=== PATIENT | male | born 1990 | race African-American/Black ===

== ENCOUNTER 2017-06-20 19:21 | Emergency (ER) | payer MEDICAID ==
[~2017-06-20] VITALS: Ht 185.4 cm; Wt 74.8 kg
[2017-06-20 19:27] VITALS: BP_SYST 126
--- NOTE | 2017-06-20 19:27 | NUR ---
Placed in room 07. Placed on machine adjuster, blood pressure machine and pulse oximeter. To gown for exam. Side rails up. Report given to JOSE Hardy.
--- NOTE | 2017-06-20 19:28 | NUR ---
PT PRESENTS TO ER BED 4 COMPLAINING OF SINUS PROBLEM X1 MONTH THAT HAS BEEN INCREASINGLY BOTHERSOME. PT CLAIMS THAT THIS PROBLEM CAUSES HIM ANGER WHICH IN TURN CAUSES HIM TO CRY. PT CLAIMS TO TAKE DEPAKOTE AT HOME BUT HAS NOT TAKEN IN OVER 1 MONTH DUE TO UNFILLED PRESCRIPTION. PT ALSO COMPLAINS OF FOOT INFECTION THAT HAS BEEN PRESENT FOR 2.5 WEEKS TO WHICH HE ALSO HAD A FUNGAL CREAM THAT HAS BEEN OUT FOR 1 WEEK.
--- NOTE | 2017-06-20 20:05 | NUR ---
ER Dr. Weldon at bedside examining patient.
--- NOTE | 2017-06-20 20:22 | NUR ---
PT NOW CLAIMING SUICIDAL IDEATION. PT HAS A PLAN, CLAIMS "I WILL CUT MYSELF WITH MY KNIFE"SECURITY NOTIFIED, BELONGINGS CONFISCATED AND PATIENT IS MOVED TO ROOM 5.
--- NOTE | 2017-06-20 20:25 | NUR ---
Patient moved to bed 05, all articles of clothing and personal items removed from room. Security called for metal detection wand, at this time. Patient calm and cooperative at this time. Will continue to monitor closely.
--- NOTE | 2017-06-20 20:30 | NUR ---
Suicide Risk and Lethality Assessment complete and placed in patient chart. Patient meets criteria for 1:3 observation. Will remain under close observation at this time.
[2017-06-20 20:34] LABS: BASOPHILS % (AUTO) 0.7 % (0.0-2.0); EOSINOPHILS # (AUTO) 0.2 K/uL (0.0-0.4); EOSINOPHILS % (AUTO) 3.7 % (0.0-4.0); HEMATOCRIT 41.2 % (36-54); LYMPHOCYTES # (AUTO) 1.4 K/uL (1.0-5.5); LYMPHOCYTES % (AUTO) 22.4 % (20.5-51.5); MEAN CORPUSCULAR HEMOGLOBIN 30 pg (27-31); MEAN CORPUSCULAR HGB CONC 34 % (32-36); MEAN CORPUSCULAR VOLUME 88 fL (79.0-98.0); MONOCYTES # (AUTO) 0.4 K/uL (0.0-1.0); MONOCYTES % (AUTO) 5.6 % (1.7-9.3); NEUTROPHILS # (AUTO) 4.3 K/uL (1.8-7.7); NEUTROPHILS % (AUTO) 67.6 % (40.0-70.0); PLATELET COUNT (AUTO) 255 K/uL (130-430); RED BLOOD CELL COUNT(AUTO) 4.66 MIL/uL (4.2-6.2); RED CELL DISTRIBUTION WIDTH 12.9 % (9.0-15.0); WHITE BLOOD COUNT (AUTO) 6.3 K/uL (4.8-10.8)
[2017-06-20 20:53] LABS: ANION GAP 8 (5-15); CALCIUM 8.7 mg/dL (8.4-11.0); CHLORIDE 106 mmol/L (98-107); CREATININE 0.84 mg/dL (0.55-1.30); GLUCOSE 87 mg/dL (70-99); POTASSIUM 3.5 mmol/L (3.5-5.1); SODIUM SERUM 143 mmol/L (136-145); UREA NITROGEN, BLOOD 11 mg/dL (8-21)
[2017-06-20 20:55] LABS: GFR AFRICAN AMERICAN 144 mL/min (>90)
[2017-06-20 21:02] LABS: ACETAMINOPHEN < 1 ug/mL (1-30); ALANINE AMINOTRANSFERASE 26 U/L (12-78); ALBUMIN 3.2 g/dL (3.4-4.8); ASPARTATE AMINOTRANSFERASE 21 U/L (10-37); LIPASE 116 U/L (73-393); TOTAL BILIRUBIN 0.3 mg/dL (0.0-1.0)
--- NOTE | 2017-06-20 21:53 | NUR ---
PT IS RESTING COMFORTABLY IN BED. NO NOTABLE ACTIVITY OR VERBALIZED PROBLEMS
--- NOTE | 2017-06-20 22:30 | NUR ---
Patient resting quietly. No acute distress noted. Will continue to monitor closely.
--- NOTE | 2017-06-20 23:00 | NUR ---
PT IS SLEEPING. NO DISTRESS, NO APPARENT PAIN OR DISCOMFORT. NO UNUSUAL ACTIVITIES. WILL CONTINUE TO OBSERVE
--- NOTE | 2017-06-21 00:10 | NUR ---
PT IS IN BED RESTING. NO SIGNS OF DISTRESS, NO APPARENT PAIN OR DISCOMFORT. NO UNUSUAL ACTIVITY OBSERVED. WILL CONTINUE TO OBSERVE.
--- NOTE | 2017-06-21 02:12 | NUR ---
Pt in bed, sleeping. no distress, no identified pain or discomfort. No unusal activity noted. will continue to observe
--- NOTE | 2017-06-21 02:54 | NUR ---
Pt in bed sleeping. no distress, no identified pain. No unusual activity. will continue to observe
--- NOTE | 2017-06-21 04:00 | NUR ---
PT SLEEPING. NO DISTRESS, NO PAIN OR DISCOMFORT. NO UNUSUAL ACTIVITY. WILL CONTINUE TO OBSERVE.
--- NOTE | 2017-06-21 05:00 | NUR ---
PT SLEEPING. NO DISTRESS, NO PAIN OR DISCOMFORT. NO UNUSUAL ACTIVITY. WILL CONTINUE TO OBSERVE.
--- NOTE | 2017-06-21 06:09 | NUR ---
PT SLEEPING, AWOKEN WHEN ASSESSED. PT IS ALERT, NO SIGNS OF DISTRESS, NO COMPLAINT OF PAIN OR DISCOMFORT. NO UNUSUAL ACTIVITES. PT IS REQUESTING ORANGE JUICE AND CRACKERTS. WILL CONTINUE TO OBSERVE
--- NOTE | 2017-06-21 06:57 | NUR ---
PT SLEEPING. NO DISTRESS, NO APPARENT PAIN OR DISCOMFORT. NO UNUSUAL ACTIVITY DETECTED. WILL CONTINUE TO OBSERVE
--- NOTE | 2017-06-21 07:05 | NUR ---
Receveid report from JOSE Hardy. All care endorsed.
--- NOTE | 2017-06-21 07:18 | NUR ---
Security at patient bedside to wand patient. Pt tolerated well.
--- NOTE | 2017-06-21 07:24 | NUR ---
Suicide Risk and Lethality Assessment complete and placed in patient chart. Pt sleeping in hospital bed comfortably. Dietary was called for breakfast tray. Sitter at bedside. No acute distress, will continue to monitor closely.
--- NOTE | 2017-06-21 08:15 | NUR ---
Pt sleeping in hospital bed. No acute distress. Rise and fall of chest is symmetrical. Will continue to monitor closely. Sitter at bedside.
--- NOTE | 2017-06-21 09:07 | NUR ---
Pt sleeping in hospital bed. No acute distress. Will continue to monitor. Sitter at bedside.
--- NOTE | 2017-06-21 09:41 | NUR ---
Pt eating breakfast at bedside. No acute distress. Will continue to monitor. Sitter at bedside.
--- NOTE | 2017-06-21 10:00 | NUR ---
Pt requested for another blanket. Pt is resting comfortably in hospital bed. No acute distress. Will continue to monitor.
--- NOTE | 2017-06-21 10:40 | NUR ---
Dr Abel at bedside examining pt
--- NOTE | 2017-06-21 10:48 | NUR ---
Dr. Abel placed patient under [id number].
--- NOTE | 2017-06-21 11:22 | NUR ---
Pt sleeping in hospital bed. Even rise and fall of chest. No acute distress. Will continue to monitor. Sitter at bedside.
--- NOTE | 2017-06-21 12:35 | NUR ---
Pt is sleeping with no noted distress or discomfort.
--- NOTE | 2017-06-21 13:24 | NUR ---
Pt is resting comfortably after eating lunch. No acute distress. Will continue to monitor.
[2017-06-21 13:27] LABS: BARBITURATE, URINE NEGATIVE (NEG <=200); BENZODIAZEPINE, URINE NEGATIVE (NEG <=150); CANNABINOID, URINE POSITIVE (NEG <=50); COCAINE, URINE NEGATIVE (NEG <=150); METHAMPHETAMINES SCREEN,URINE NEGATIVE (NEG <=500); OPIATE, URINE NEGATIVE (NEG <=100); PHENCYCLIDINE SCREEN,URINE NEGATIVE (NEG <=25); UR TRICYCLIC ANTIDEPRESSANTS NEGATIVE (NEG <=300); URINE AMPHETAMINE POSITIVE (NEG <=500); URINE METHADONE NEGATIVE (NEG <=200); URINE OXYCODONE SCREEN NEGATIVE (NEG <=100); URINE PROPOXYPHENE SCREEN NEGATIVE (NEG <=300)
[2017-06-21] MEDS ORDERED: DIPHENHYDRAMINE INJ 50 MG/ML VIAL ONE (13:59)
[2017-06-21] MEDS ORDERED: HALOPERIDOL LACTATE 5 MG/ML VIAL ONE (14:00)
[2017-06-21] MEDS ORDERED: LORazepam 2 MG/ML VIAL (FOR ER USE) ONE (14:01)
[2017-06-21] MEDS ORDERED: DIPHENHYDRAMINE INJ 50 MG/ML VIAL IVP ONE (14:15)
[2017-06-21] MEDS ORDERED: HALOPERIDOL LACTATE 5 MG/ML VIAL IVP ONE (14:15)
[2017-06-21] MEDS ORDERED: LORazepam 2 MG/ML VIAL (FOR ER USE) IVP ONE (14:15)
--- NOTE | 2017-06-21 14:17 | NUR ---
RECIEVED REPORT FROM NURSE. PT IS AGRAVATED AND ARGUING WITH NURSE AND DOCTOR. WILL CONTINUE TO MONITOR.
--- NOTE | 2017-06-21 14:26 | NUR ---
# 18 gauge angiocath placed to RAC. Use of asceptic technique. Opsite placed over site. Blood return noted. Blood for lab drawn from site. Flushed with 10 cc of normal saline. No evidence of infiltration noted. Patient tolerated well.
--- NOTE | 2017-06-21 14:30 | NUR ---
Medication was given, pt tolerated well. No adverse reaction, will continue to monitor.
--- NOTE | 2017-06-21 15:19 | NUR ---
PT RESTING COMFORTABLY IN BED. WILL CONTINUE TO MONITOR.
--- NOTE | 2017-06-21 16:26 | NUR ---
Pt is sleeping comfortably. No acute distress. Will continue to monitor.
--- NOTE | 2017-06-21 17:24 | NUR ---
pt sleeping comfortably. no acute distress. will continue to monitor.
--- NOTE | 2017-06-21 18:36 | NUR ---
Pt resting comfortably in hospital bed. No acute distress. Will continue to monitor.
--- NOTE | 2017-06-21 19:11 | NUR ---
Report given to JOSE Nieto. All care endorsed.
--- NOTE | 2017-06-21 19:15 | NUR ---
Patient sleeping comfortably. No acute distress noted. Will continue to monitor.
--- NOTE | 2017-06-21 19:36 | NUR ---
Pt is resting comfortably in hospital bed. No acute distress. Will continue to monitor.
--- NOTE | 2017-06-21 19:45 | NUR ---
Patient sleeping comfortably. No acute distress noted. Will continue to monitor.
--- NOTE | 2017-06-21 20:00 | NUR ---
Patient sleeping comfortably. No acute distress noted. Will continue to monitor.
--- NOTE | 2017-06-21 20:15 | NUR ---
Patient sleeping comfortably. No acute distress noted. Will continue to monitor.
--- NOTE | 2017-06-21 20:37 | NUR ---
Pt is resting comfortably in hospital bed. No acute distress. Will continue to monitor.
--- NOTE | 2017-06-21 20:45 | NUR ---
Patient sleeping comfortably. No acute distress noted. Will continue to monitor.
--- NOTE | 2017-06-21 21:14 | NUR ---
Pt requested some snacks. sandwich, crackers, and orange juice given. no acute distress. will continue to monitor.
--- NOTE | 2017-06-21 21:20 | NUR ---
Patient resting, given sandwhiches, patient has finished 1 sandwhich and 2 juices. Will continue to monitor.
--- NOTE | 2017-06-21 21:35 | NUR ---
Patient resting quietly. No acute distress noted. Vital signs within normal range.
--- NOTE | 2017-06-21 21:50 | NUR ---
Patient sleeping comfortably. No acute distress noted. Will continue to monitor.
--- NOTE | 2017-06-21 22:00 | NUR ---
Patient sleeping. No acute distress noted. Will continue to monitor.
--- NOTE | 2017-06-21 22:15 | NUR ---
Patient resting quietly. No acute distress noted.
--- NOTE | 2017-06-21 22:30 | NUR ---
Patient resting quietly. No acute distress noted.
--- NOTE | 2017-06-21 22:40 | NUR ---
pt is resting comfortably in hospital bed. no acute distress. will continue to monitor.
--- NOTE | 2017-06-21 23:00 | NUR ---
Patient sleeping comfortably. No acute distress noted. Will continue to monitor.
--- NOTE | 2017-06-21 23:15 | NUR ---
Patient sleeping comfortably. No acute distress noted. Will continue to monitor.
--- NOTE | 2017-06-21 23:30 | NUR ---
Patient sleeping comfortably. No acute distress noted. Will continue to monitor.
--- NOTE | 2017-06-21 23:45 | NUR ---
Patient sleeping comfortably. No acute distress noted. Will continue to monitor.
--- NOTE | 2017-06-22 | NUR ---
Patient sleeping comfortably. No acute distress noted. Will continue to monitor.
--- NOTE | 2017-06-22 00:16 | NUR ---
Pt has asked for some orange juice. Bryan juice was given. No acute distress. Will continue to monitor.
--- NOTE | 2017-06-22 00:30 | NUR ---
Patient sleeping comfortably. No acute distress noted. Will continue to monitor.
--- NOTE | 2017-06-22 00:45 | NUR ---
Patient sleeping comfortably. No acute distress noted. Will continue to monitor.
--- NOTE | 2017-06-22 01:08 | NUR ---
Pt resting comfortably, no apparent distress. will continue to monitor.
--- NOTE | 2017-06-22 01:30 | NUR ---
IV catheter dislodged. Catheter DC, pressure applied to site. MD Weldon made aware.
--- NOTE | 2017-06-22 01:45 | NUR ---
Patient sleeping comfortably. No acute distress noted. Will continue to monitor.
--- NOTE | 2017-06-22 02:01 | NUR ---
Patient resting quietly. No acute distress noted. Will continue to monitor.
--- NOTE | 2017-06-22 02:15 | NUR ---
Patient sleeping comfortably. No acute distress noted.
--- NOTE | 2017-06-22 02:30 | NUR ---
Patient resting quietly. No acute distress noted. Vital signs within normal range.
--- NOTE | 2017-06-22 02:45 | NUR ---
Patient resting quietly. No acute distress noted.
--- NOTE | 2017-06-22 03:00 | NUR ---
Patient resting quietly. No acute distress noted.
--- NOTE | 2017-06-22 03:15 | NUR ---
Patient resting quietly. No acute distress noted.
--- NOTE | 2017-06-22 03:30 | NUR ---
Patient resting quietly. No acute distress noted.
--- NOTE | 2017-06-22 03:30 | NUR ---
Note donte in [facility] - 06/22/17 at 0401 by [email or web address] Patient resting quietly. No acute distress noted.
--- NOTE | 2017-06-22 03:45 | NUR ---
Patient resting quietly. No acute distress noted.
--- NOTE | 2017-06-22 04:00 | NUR ---
Patient resting quietly. No acute distress noted.
--- NOTE | 2017-06-22 04:16 | NUR ---
Patient resting quietly. No acute distress noted
--- NOTE | 2017-06-22 04:31 | NUR ---
Patient resting quietly. No acute distress noted
--- NOTE | 2017-06-22 04:44 | NUR ---
Patient resting quietly. No acute distress noted
--- NOTE | 2017-06-22 05:00 | NUR ---
Patient resting quietly. No acute distress noted
--- NOTE | 2017-06-22 05:15 | NUR ---
Patient resting quietly. No acute distress noted
--- NOTE | 2017-06-22 05:30 | NUR ---
Patient resting quietly. No acute distress noted
--- NOTE | 2017-06-22 05:45 | NUR ---
Patient resting quietly. No acute distress noted
--- NOTE | 2017-06-22 05:58 | NUR ---
PATIENT UP USING THE RESTROOM
--- NOTE | 2017-06-22 06:00 | NUR ---
Patient screaming and yelling, threatening staff stating, "I'm going to fuck you all up. I need hospital socks!" Security called at this time. Patient advised to stop MD Dr. Shiraz richard aware of situation.
--- NOTE | 2017-06-22 06:02 | NUR ---
ER at bedside examining patient. Patient threatening MD at this time stating, "You better order me something for my sinus infection or else I'm going fucking, fuck you up." Security on way to ED at this time.
--- NOTE | 2017-06-22 06:05 | NUR ---
Security at bedside.
--- NOTE | 2017-06-22 06:20 | NUR ---
Security at bedside, patient calm and back in bed, no longer yelling. No acute distress. Will continue to monitor.
--- NOTE | 2017-06-22 06:35 | NUR ---
Patient resting no acute distress noted.
--- NOTE | 2017-06-22 06:55 | NUR ---
Shannan left ED at this time, patient stable, resting in bed. No acute distress noted. Will continue to monitor.
--- NOTE | 2017-06-22 07:15 | NUR ---
Report given to Adam GARCIA. All care endorsed.
--- NOTE | 2017-06-22 07:30 | NUR ---
ASSUMED CARE. PT GIVEN MORNING TRAY. PT TOLERATING WELL.
--- NOTE | 2017-06-22 07:45 | NUR ---
Pt medicated for c/o sinus irritation.Pt tolerated well.
[2017-06-22] MEDS: FLUTICASONE PROPIONATE 50 mCg/SPRAY 16 GM NS SCH ×2 (07:52→21:16)
--- NOTE | 2017-06-22 08:00 | NUR ---
Pt consumed 100% of breakfast tray. Pt tolerated well.
--- NOTE | 2017-06-22 08:15 | NUR ---
Pt sleeping easily arousable.
--- NOTE | 2017-06-22 08:45 | NUR ---
Pt resting, not engaging in conversation.Pt declines hydration or toileting at this time
--- NOTE | 2017-06-22 09:45 | NUR ---
Pt wanded by security. Pt retuned to sleep. Sitter at bedside. Gurney in lowest position, no acute distress noted.
--- NOTE | 2017-06-22 10:10 | NUR ---
SLEEPING QUIETLY, NO CHANGES
--- NOTE | 2017-06-22 11:00 | NUR ---
PT BECOME AGGRESSIVE AND HAVING TEMPER TANTRUM. PT REASSURED PREVIOUSLY REQUESTED MEDICATION IS COMING FROM PHARMACY,HOWEVER PT COOPERATIVE W/ PO ATIVAN.
[2017-06-22] MEDS ORDERED: CLOTRIMAZOLE/BETAMET DIPROP 15 GM TUBE TP SCH (11:15)
[2017-06-22] MEDS ORDERED: LORazepam 1 MG TABLET PO ONE (11:15)
[2017-06-22] MEDS: CLOTRIMAZOLE/BETAMET DIPROP 15 GM TUBE TP SCH ×2 (11:16→22:11)
[2017-06-22] MEDS ORDERED: PSEUDOEPHEDRINE HCL 30 MG TABLET PO ONE (11:30)
--- NOTE | 2017-06-22 11:30 | NUR ---
ANTIFUNGAL CREAM APPLIED TO TOENAILS, PT TOLERATED WELL. PT MADE AGREEMENT TO BE CALM. PT RETURNED TO RESTING STATED. CONTINUING TO MONITOR.
--- NOTE | 2017-06-22 12:40 | NUR ---
PT currently eating lunch. Saftey tray provided. PT calm at the momment. No signs of anytype of distress. Will remain monitoring PT
--- NOTE | 2017-06-22 13:30 | NUR ---
PT currently sleeping. PT not showing anykind of distress. Will continue to monitor
--- NOTE | 2017-06-22 14:20 | NUR ---
PT woke up to go to restroom. PT is back in bed sleeping. No signs of any distress at the time. Will continue to monitor
--- NOTE | 2017-06-22 15:18 | NUR ---
PT is resting in bed. No signs of any distress at the momment. Will Continue to Monitor
--- NOTE | 2017-06-22 16:12 | NUR ---
PT sleeping at the mommnent no signs of any type of distress will continue monitoring PT
--- NOTE | 2017-06-22 17:00 | NUR ---
PT laying in bed sleeping. No sings of any distress. Will continue to monitor PT for any changes.
--- NOTE | 2017-06-22 17:30 | NUR ---
PT asked for snacks. Crackers provided. PT back to sleep no signs of distress. Will continue to monitor
--- NOTE | 2017-06-22 18:00 | NUR ---
PT sleeping at time, no signs of distress. Will continue to monitor
--- NOTE | 2017-06-22 18:12 | NUR ---
PT sleeping, no signs of distress. Will continue to monitor
--- NOTE | 2017-06-22 19:00 | NUR ---
PT sleeping . No Changes. Will continue to monitor
--- NOTE | 2017-06-22 19:30 | NUR ---
Patient placed on suicide precautions. Patient placed in room within close proximity to nurses' station for closer observation and monitoring. All clothing removed, placed in hospital gown. Metal detector wand used to further screen patient of any potential hazardous belongings. All belongings inventoried, placed in bags and removed from room. Cabinets locked. BP and pulse oximeter cords, and telemetry monitor leads removed.
--- NOTE | 2017-06-22 19:46 | NUR ---
Pt resting at this time eyes closed, respirations even and unlabored.
--- NOTE | 2017-06-22 20:36 | NUR ---
Patient sleeping comfortably. No acute distress noted. Will continue to monitor.
--- NOTE | 2017-06-22 21:30 | NUR ---
Patient resting quietly. No acute distress noted
--- NOTE | 2017-06-22 22:30 | NUR ---
Pt is resting comfortably in hospital bed. No acute distress. Will continue to monitor.
--- NOTE | 2017-06-22 23:30 | NUR ---
Pt sleeping in hospital bed. No acute distress. Rise and fall of chest is symmetrical. Will continue to monitor closely.
--- NOTE | 2017-06-23 00:21 | NUR ---
Pt in bed, sleeping. no distress, no identified pain or discomfort. No unusal activity noted. Report given to RN
[2017-06-23 00:56] VITALS: BP_SYST 99
--- NOTE | 2017-06-23 00:56 | NUR ---
Patient to be transferred to [facility]. Pt is being transferred due to higher level of care. Receiving facility has accepting physician and available space. ER physician has signed transfer form. Patient or responsible republican has agreed to transfer and signed form. Patient belongings inventoried and will be sent with patient. Copy of nursing notes, lab reports, EKG, Physicians Orders and X-rays to be sent with patient. Report called to Andriy GARCIA at receiving facility. Receiving physician is Dr. Johns. [facility] on scene for transfer. ETA to [facility] is 45 min.
[2017-06-23] MEDS ORDERED: LORazepam 1 MG TABLET PO ONE (01:00)
== END 2017-06-23 00:56 ==
LOC: SED 19:21
DX: R45.851 Suicidal ideations (principal); F31.9 Bipolar disorder, unspecified
CPT/HCPCS: 36415; 80053; 80307; 83690; 83880; 84484; 85025; 93005; 96374; 96375; 99285; G0480; G0481; G0482; J1200; J2060; J1630

== ENCOUNTER 2018-02-16 13:23 | Emergency (ER) | payer MEDICAID ==
[~2018-02-16] VITALS: Ht 185.4 cm; Wt 74.8 kg
[2018-02-16 13:23] VITALS: BP_SYST 99
--- NOTE | 2018-02-16 13:23 | NUR ---
BROUGHT IN BY [facility], TRIAGED, REPORT GIVEN TO SARABJIT
--- NOTE | 2018-02-16 13:30 | NUR ---
Pt bib EMS c/o SI. Pt h/o Bipolar maniac depression and HTN. Pt calm and cooperative at this time. Pt changed to hospital gown, belongings bagged on labeled. Pt discharged from [facility] yesterday per report.Pt admits using mariuana yesterday. Verbal contract to made with pt for safety.Pt denies pain at this time.
--- NOTE | 2018-02-16 13:35 | NUR ---
ER at bedside examining patient.
--- NOTE | 2018-02-16 13:50 | NUR ---
Pt wanded by security.
--- NOTE | 2018-02-16 14:00 | NUR ---
Sitter at bedside.
--- NOTE | 2018-02-16 14:00 | NUR ---
pt calmly talking to JOSE mathews
[2018-02-16] MEDS ORDERED: risperiDONE 1 MG TABLET (RisperDAL) PO SCH (14:15)
[2018-02-16] MEDS ORDERED: DIVALPROEX SODIUM 250 MG TABLET(DEPAKOTE) PO ONE (14:15)
--- NOTE | 2018-02-16 14:15 | NUR ---
pt calm laying in bed eating food and drinking juice
--- NOTE | 2018-02-16 14:24 | NUR ---
1350 pt calm quite drinkiing juice Addendum: 02/16/18 at 1425 by Marielle Avendano MT/ time was at 1350
--- NOTE | 2018-02-16 14:30 | NUR ---
pt laying in bed on left side with eyes closed
--- NOTE | 2018-02-16 14:30 | NUR ---
Pt given safety tray.Pt tolerated well 100% consumed.
[2018-02-16 14:45] LABS: BARBITURATE, URINE NEGATIVE (NEG <=200); CANNABINOID, URINE POSITIVE (NEG <=50); METHAMPHETAMINES SCREEN,URINE POSITIVE (NEG <=500); URINE AMPHETAMINE POSITIVE (NEG <=500)
--- NOTE | 2018-02-16 14:45 | NUR ---
pt resting calmly resting with eyes closed room checked all items of harm have been cleared out of room
[2018-02-16 14:46] LABS: BENZODIAZEPINE, URINE NEGATIVE (NEG <=150); COCAINE, URINE NEGATIVE (NEG <=150); OPIATE, URINE NEGATIVE (NEG <=100); PHENCYCLIDINE SCREEN,URINE NEGATIVE (NEG <=25); UR TRICYCLIC ANTIDEPRESSANTS NEGATIVE (NEG <=300); URINE OXYCODONE SCREEN NEGATIVE (NEG <=100); URINE PROPOXYPHENE SCREEN NEGATIVE (NEG <=300)
[2018-02-16 14:46] LABS: BASOPHILS # (AUTO) 0.1 K/uL (0.0-0.2); BASOPHILS % (AUTO) 0.7 % (0.0-2.0); EOSINOPHILS % (AUTO) 0.6 % (0.0-4.0); HEMATOCRIT 44.5 % (36-54); HEMOGLOBIN 14.6 g/dL (14.0-18.0); LYMPHOCYTES % (AUTO) 12.5 % (20.5-51.5); MEAN CORPUSCULAR HEMOGLOBIN 30 pg (27-31); MEAN CORPUSCULAR HGB CONC 33 % (32-36); MEAN CORPUSCULAR VOLUME 92 fL (79.0-98.0); MONOCYTES # (AUTO) 0.2 K/uL (0.0-1.0); NEUTROPHILS # (AUTO) 6.5 K/uL (1.8-7.7); NEUTROPHILS % (AUTO) 83.2 % (40.0-70.0); PLATELET COUNT (AUTO) 255 K/uL (130-430); RED BLOOD CELL COUNT(AUTO) 4.86 MIL/uL (4.2-6.2); RED CELL DISTRIBUTION WIDTH 12.5 % (9.0-15.0); WHITE BLOOD COUNT (AUTO) 7.8 K/uL (4.8-10.8)
[2018-02-16 14:47] LABS: URINE METHADONE NEGATIVE (NEG <=200)
--- NOTE | 2018-02-16 15:00 | NUR ---
pt calmly laying in bed resting with eyes closed
[2018-02-16 15:02] LABS: ANION GAP 5 (5-15); CALCIUM 9.1 mg/dL (8.4-11.0); CHLORIDE 104 mmol/L (98-107); CREATININE 0.91 mg/dL (0.55-1.30); GLUCOSE 101 mg/dL (70-99); POTASSIUM 3.9 mmol/L (3.5-5.1); SODIUM SERUM 138 mmol/L (136-145); UREA NITROGEN, BLOOD 10 mg/dL (8-21)
[2018-02-16 15:06] LABS: GFR AFRICAN AMERICAN 131 mL/min (>90)
[2018-02-16 15:07] LABS: ALANINE AMINOTRANSFERASE 16 U/L (12-78); ALBUMIN 3.7 g/dL (3.4-4.8); ASPARTATE AMINOTRANSFERASE 17 U/L (10-37); TOTAL BILIRUBIN 0.6 mg/dL (0.0-1.0)
[2018-02-16 15:08] LABS: ALCOHOL, BLOOD < 3 mg/dL (<10)
--- NOTE | 2018-02-16 15:15 | NUR ---
pt receiving Meds from JOSE Medina. pt still is calm and quieted
--- NOTE | 2018-02-16 15:27 | NUR ---
Pt medically cleared.
--- NOTE | 2018-02-16 15:30 | NUR ---
pt resting with eyes close all items have been removed from harm of pt RN Notified and aware
--- NOTE | 2018-02-16 15:45 | NUR ---
pt resting on back with eyes closed
--- NOTE | 2018-02-16 16:00 | NUR ---
pt resting with eyes closed on left side
--- NOTE | 2018-02-16 16:15 | NUR ---
pt resting quietly with eyes closed on right side
--- NOTE | 2018-02-16 16:30 | NUR ---
pt resting on back with eyes closed
--- NOTE | 2018-02-16 16:45 | NUR ---
pt requested food states he is hungry asked RN for food RN ordered dietery brought tray pt also state he has pain in his head states pain is a ten RN Adam was notified
--- NOTE | 2018-02-16 16:55 | NUR ---
Pt's therapist at bedside.
[2018-02-16] MEDS ORDERED: ACETAMINOPHEN 500 MG TABLET ONE (16:57)
[2018-02-16] MEDS ORDERED: ACETAMINOPHEN 500 MG TABLET PO ONE (17:00)
--- NOTE | 2018-02-16 17:00 | NUR ---
pt is laying in bed calmly speaking with visitor
--- NOTE | 2018-02-16 17:15 | NUR ---
pt is talking to visitor
--- NOTE | 2018-02-16 17:20 | NUR ---
Pt to be placed on hold by [facility] health staff involved with care, en route from [place] ETA 1-1.5hr.
--- NOTE | 2018-02-16 17:30 | NUR ---
pt resting laying on back in bed with eyes closed
--- NOTE | 2018-02-16 17:45 | NUR ---
pt laying in bed eating chips talking to visitor.
--- NOTE | 2018-02-16 18:02 | NUR ---
pt layin in bed resting with eyes closed
--- NOTE | 2018-02-16 18:15 | NUR ---
pt laying in bed resting with eyes closed report given to Leo.room check done all harmful items have been removed
--- NOTE | 2018-02-16 18:22 | NUR ---
RECEIVED REPORT FROM FELICITAS. PATIENT CURRENTLY RESTING IN BED. WILL CONTINUE TO MONITOR.
--- NOTE | 2018-02-16 18:45 | NUR ---
PATIENT SLEEPING IN BED. WILL CONTINUE TO MONITOR.
--- NOTE | 2018-02-16 19:00 | NUR ---
PET TEAM HERE EVALUATING PATIENT. PATIENT SHOWING NO SIGNS OF DISTRESS. WILL CONTINUE TO MONITOR.
--- NOTE | 2018-02-16 19:09 | NUR ---
Patient care endorsed tome. Patient on gurney with sitter and PET steamtable worker at bedside. Patient calm and cooperative at this time.
--- NOTE | 2018-02-16 19:15 | NUR ---
PATIENT IN BED. SHOWING NO SIGNS OF DISTRESS. WILL CONTINUE TO MONITOR.
--- NOTE | 2018-02-16 19:30 | NUR ---
PATIENT RESTING IN BED. WILL CONTINUE TO MONITOR.
--- NOTE | 2018-02-16 19:36 | NUR ---
Received 5150 from pet team who also arranged accepting facility for [facility]. Pet team representatives will wait here with patient until transport. Patient calm on gurney. Continuous monitoring and sitter.
--- NOTE | 2018-02-16 19:44 | NUR ---
Suicidal and lethality assessment completed and placed in chart.
--- NOTE | 2018-02-16 19:45 | NUR ---
PATIENT RESTING IN BED. WILL CONTINUE TO MONITOR.
--- NOTE | 2018-02-16 19:58 | NUR ---
PATIENT RESTING IN BED. WILL CONTINUE TO MONITOR.
--- NOTE | 2018-02-16 20:15 | NUR ---
PATIENT RESTING IN BED. WILL CONTINUE TO MONITOR.
--- NOTE | 2018-02-16 20:29 | NUR ---
Security at bedside wanding patient. No contraband found.
--- NOTE | 2018-02-16 20:30 | NUR ---
PATIENT RESTING IN BED. WILL CONTINUE TO MONITOR.
--- NOTE | 2018-02-16 20:45 | NUR ---
PATIENT SLEEPING IN BED. WILL CONTINUE TO MONITOR.
--- NOTE | 2018-02-16 21:00 | NUR ---
PATIENT SLEEPING IN BED. WILL CONTINUE TO MONITOR.
--- NOTE | 2018-02-16 21:15 | NUR ---
PATIENT RESTING IN BED. WILL CONTINUE TO MONITOR.
--- NOTE | 2018-02-16 21:30 | NUR ---
PATIENT SLEEPING IN BED. WILL CONTINUE TO MONITOR.
--- NOTE | 2018-02-16 21:45 | NUR ---
PATIENT SLEEPING IN BED. WILL CONTINUE TO MONITOR.
--- NOTE | 2018-02-16 22:00 | NUR ---
PATIENT SLEEPING IN BED. SHOWING NO SIGNS OF DISTRESS.
--- NOTE | 2018-02-16 22:14 | NUR ---
PATIENT SLEEPING IN BED. WILL CONTINUE TO MONITOR.
--- NOTE | 2018-02-16 22:30 | NUR ---
PATIENT SLEEPING IN BED. WILL CONTINUE TO MONITOR.
--- NOTE | 2018-02-16 22:45 | NUR ---
PATIENT SLEEPING IN BED. WILL CONTINUE TO MONITOR.
--- NOTE | 2018-02-16 23:00 | NUR ---
PATIENT SLEEPING IN BED. WILL CONTINUE TO MONITOR.
--- NOTE | 2018-02-16 23:15 | NUR ---
PATIENT SLEEPING IN BED. WILL CONTINUE TO MONITOR.
--- NOTE | 2018-02-16 23:30 | NUR ---
PATIENT SLEEPING IN BED. WILL CONTINUE TO MONITOR
--- NOTE | 2018-02-16 23:45 | NUR ---
PATIENT AWAKE ASKING FOR SANDWICH. SHOWING NO SIGNS OF DISTRESS. WILL CONTINUE TO MONITOR.
--- NOTE | 2018-02-17 | NUR ---
PATIENT RESTING IN BED. WILL CONTINUE TO MONITOR.
--- NOTE | 2018-02-17 00:16 | NUR ---
PATIENT EATING ON BED. SHOWING NO SIGNS OF DISTRESS. WILL CONTINUE TO MONITOR.
--- NOTE | 2018-02-17 00:20 | NUR ---
Patient C/O 03/10 jaw pain, non-radiating. ER MD aware
[2018-02-17] MEDS ORDERED: KETOROLAC TROMETHAMINE 60 MG/2 ML VIAL IM ONE ×2 (00:30→00:45)
--- NOTE | 2018-02-17 00:35 | NUR ---
Patient medicated per ER MD orders. Patient requested to see the vial of medication being administered. Nurse explained the medication, use and side effects. Patient shouted "you are a dumb bitch nurse"
--- NOTE | 2018-02-17 00:45 | NUR ---
PATIENT RESTING IN BED. WILL CONTINUE TO MONITOR.
--- NOTE | 2018-02-17 01:00 | NUR ---
PATIENT RESTING IN BED. SHOWING NO SIGNS OF DISTRESS. WILL CONTINUE TO MONITOR.
--- NOTE | 2018-02-17 01:15 | NUR ---
PATIENT SLEEPING IN BED. WILL CONTINUE TO MONITOR.
--- NOTE | 2018-02-17 01:31 | NUR ---
PATIENT SLEEPING IN BED. WILL CONTINUE TO MONITOR.
--- NOTE | 2018-02-17 01:45 | NUR ---
PATIENT RESTING IN BED. WILL CONTINUE TO MONITOR.
--- NOTE | 2018-02-17 02:00 | NUR ---
PATIENT SLEEPING IN BED. WILL CONTINUE TO MONITOR.
--- NOTE | 2018-02-17 02:13 | NUR ---
PATIENT SLEEPING IN BED. WILL CONTINUE TO MONITOR.
--- NOTE | 2018-02-17 02:30 | NUR ---
PATIENT SLEEPING IN BED. WILL CONTINUE TO MONITOR.
--- NOTE | 2018-02-17 02:45 | NUR ---
PATIENT SLEEPING IN BED. WILL CONTINUE TO MONITOR
--- NOTE | 2018-02-17 03:00 | NUR ---
PATIENT SLEEPING IN BED. WILL CONTINUE TO MONITOR.
--- NOTE | 2018-02-17 03:15 | NUR ---
PATIENT SLEEPING IN BED. WILL CONTINUE TO MONITOR.
--- NOTE | 2018-02-17 03:30 | NUR ---
PATIENT SLEEPING IN BED. WILL CONTINUE TO MONITOR.
--- NOTE | 2018-02-17 03:45 | NUR ---
PATIENT SLEEPING IN BED. WILL CONTINUE TO MONITOR.
--- NOTE | 2018-02-17 04:00 | NUR ---
PATIENT SLEEPING IN BED. WILL CONTINUE TO MONITOR.
--- NOTE | 2018-02-17 04:13 | NUR ---
PATIENT SLEEPING IN BED. WILL CONTINUE TO MONITOR.
--- NOTE | 2018-02-17 04:30 | NUR ---
PATIENT SLEEPING IN BED. WILL CONTINUE TO MONITOR.
--- NOTE | 2018-02-17 04:44 | NUR ---
PATIENT IS SLEEPING IN BED. WILL CONTINUE TO MONITOR.
--- NOTE | 2018-02-17 05:00 | NUR ---
PATIENT SLEEPING IN BED. WILL CONTINUE TO MONITOR.
--- NOTE | 2018-02-17 05:15 | NUR ---
PATIENT SLEEPING IN BED. WILL CONTINUE TO MONITOR.
--- NOTE | 2018-02-17 05:27 | NUR ---
PATIENT SLEEPING IN BED. WILL CONTINUE TO MONITOR.
--- NOTE | 2018-02-17 05:46 | NUR ---
PATIENT SLEEPING IN BED. WILL CONTINUE TO MONITOR.
--- NOTE | 2018-02-17 06:02 | NUR ---
PATIENT SLEEPING. WILL CONTINUE TO MONITOR.
--- NOTE | 2018-02-17 06:10 | NUR ---
PATIENT SLEEPING IN BED. RELEIVED BY DONALDO LÓPEZ. REPORT GIVEN.
--- NOTE | 2018-02-17 06:30 | NUR ---
PATIENT IS SLEEPING IN BED. WILL CONTINUE TO MONITOR.
--- NOTE | 2018-02-17 06:45 | NUR ---
PATIENT IS SLEEPING IN BED. WILL CONTINUE TO MONITOR.
--- NOTE | 2018-02-17 06:50 | NUR ---
Patient asleep. No signs of acute distress. Sitter at bedside.
--- NOTE | 2018-02-17 07:00 | NUR ---
PATIENT IS SLEEPING IN BED. WILL CONTINUE TO MONITOR.
--- NOTE | 2018-02-17 07:09 | NUR ---
Patient care endorsed to Jose GARCIA via [facility]
--- NOTE | 2018-02-17 07:15 | NUR ---
PATIENT IS EATING IN BED. HES COMPLAINING THAT HE DOESNT WANNA BE HERE , I WILL CONTINUE TO MONITOR.
--- NOTE | 2018-02-17 07:30 | NUR ---
Pt eating breakfast at bedside, pt appears comfortably, no signs of distress, pt calm & cooperative at the moment. Will continue to monitor; sitter at bedside.
--- NOTE | 2018-02-17 07:30 | NUR ---
PATIENT WENT BACK TO SLEEPING IN BED. I WILL CONTINUE TO MONITOR.
--- NOTE | 2018-02-17 07:45 | NUR ---
PATIENT IS RESTING WITH HIS EYES CLOSED. I WILL CONTINUE TO MONITOR.
--- NOTE | 2018-02-17 08:00 | NUR ---
PATIENT IS RESTING WITH HIS EYES CLOSED. I WILL CONTINUE TO MONITOR.
--- NOTE | 2018-02-17 08:15 | NUR ---
Pt sleeping on gurney, no signs of distress, will continue to monitor.
--- NOTE | 2018-02-17 08:15 | NUR ---
PT IS RESTING IN BED. NO SIGNS OF DISTRESS, WILL CONTINUE TO MONITOR.
--- NOTE | 2018-02-17 08:15 | NUR ---
PATIENT IS RESTING WITH HIS EYES CLOSED. I WILL CONTINUE TO MONITOR.
--- NOTE | 2018-02-17 08:30 | NUR ---
PT IS RESTING IN BED. NO SIGNS OF DISTRESS. WILL CONTINUE TO MONITOR.
--- NOTE | 2018-02-17 08:30 | NUR ---
PATIENT IS ASLEEP, I WILL CONTINUE TO MONITOR.
--- NOTE | 2018-02-17 08:45 | NUR ---
PT IS RESTING IN BED. NO SIGNS OF DISTRESS. WILL CONTINUE TO MONITOR.
--- NOTE | 2018-02-17 09:00 | NUR ---
PT IS RESTING IN BED. NO SIGNS OF DISTRESS. WILL CONTINUE TO MONITOR.
--- NOTE | 2018-02-17 09:00 | NUR ---
Pt sleeping on gurney, no signs of distress, will continue to monitor.
--- NOTE | 2018-02-17 09:15 | NUR ---
PT IS RESTING IN BED. NO SIGNS OF DISTRESS. WILL CONTINUE TO MONITOR.
--- NOTE | 2018-02-17 09:30 | NUR ---
PT IS RESTING IN BED. NO SIGNS OF DISTRESS. WILL CONTINUE TO MONITOR.
--- NOTE | 2018-02-17 09:45 | NUR ---
PT IS RESTING IN BED. NO SIGNS OF DISTRESS. WILL CONTINUE TO MONITOR.
--- NOTE | 2018-02-17 10:00 | NUR ---
PT IS ASLEEP. NO SIGNS OF DISTRESS. WILL CONTINUE TO MONITOR.
--- NOTE | 2018-02-17 10:00 | NUR ---
Pt sleeping on gurney, no signs of distress, will continue to monitor.
--- NOTE | 2018-02-17 10:13 | NUR ---
PT IS RESTING IN BED. NO SIGNS OF DISTRESS. WILL CONTINUE TO MONITOR.
--- NOTE | 2018-02-17 10:30 | NUR ---
PT IS RESTING IN BED ASLEEP. THERES NO SIGNS OF DISTRESS. WILL CONTINUE TO MONITOR.
--- NOTE | 2018-02-17 10:44 | NUR ---
PT IS RESTING IN BED. THERES NO SIGNS OF DISTRESS. WILL CONTINUE TO MONITOR.
--- NOTE | 2018-02-17 10:45 | NUR ---
Social Service Note: BIOLOGICAL CHEMIST placed call [facility] ([phone]) and spoke to Allyson who states that the call center has sent several faxes and made call to the [facility]; no beds have been located at this time. Allyson states that the call center will continue to work on placement for pt. BIOLOGICAL CHEMIST will continue to follow up with the call center.
--- NOTE | 2018-02-17 11:00 | NUR ---
PT IS RESTING IN BED. THERES NO SIGNS OF DISTRESS. WILL CONTINUE TO MONITOR.
--- NOTE | 2018-02-17 11:00 | NUR ---
Pt sleeping on gurney, no signs of distress, will continue to monitor.
--- NOTE | 2018-02-17 11:14 | NUR ---
PT IS RESTING IN BED THERES NO SIGNS OF DISTRESS. WILL CONTINUE TO MONITOR.
--- NOTE | 2018-02-17 11:30 | NUR ---
PT IS RESTING IN THE BED, HE ASKED FOR A ORANGE JUICE, AN ORANGE JUICE WAS GIVEN ,THERE'S NO SIGNS OF DISTRESS. WILL CONTINUE TO MONITOR.
--- NOTE | 2018-02-17 11:45 | NUR ---
PT WAS GIVEN HIS LUNCH TRAY, HE UP AND EATING ,THERES NO SIGNS OF DISTRESS. WILL CONTINUE TO MONITOR.
--- NOTE | 2018-02-17 11:56 | NUR ---
PT IS YELLING CAUSE HES FRUSTRATED THAT HES MAKING A MESS, I WILL CONTINUE TO MONITOR.
--- NOTE | 2018-02-17 12:15 | NUR ---
PT IS IN THE BED RESTING. THERE'S NO SIGNS OF DISTRESS. WILL CONTINUE TO MONITOR.
--- NOTE | 2018-02-17 12:29 | NUR ---
PT IS IN THE BED RESTING. THERE'S NO SIGNS OF DISTRESS. WILL CONTINUE TO MONITOR.
--- NOTE | 2018-02-17 12:44 | NUR ---
PT IS IN THE BED RESTING. THERE'S NO SIGNS OF DISTRESS. WILL CONTINUE TO MONITOR.
--- NOTE | 2018-02-17 13:00 | NUR ---
PT IS RESTING IN BED. NO SIGNS OF DISTRESS. WILL CONTINUE TO MONITOR.
--- NOTE | 2018-02-17 13:15 | NUR ---
PT IS RESTING IN BED. NO SIGNS OF DISTRESS. WILL CONTINUE TO MONITOR.
--- NOTE | 2018-02-17 13:30 | NUR ---
PT IS RESTING IN BED. NO SIGNS OF DISTRESS. WILL CONTINUE TO MONITOR.
--- NOTE | 2018-02-17 13:45 | NUR ---
PT IS RESTING IN BED. NO SIGNS OF DISTRESS. WILL CONTINUE TO MONITOR.
--- NOTE | 2018-02-17 14:00 | NUR ---
PT IS IN THE BED RESTING. THERE'S NO SIGNS OF DISTRESS. WILL CONTINUE TO MONITOR.
--- NOTE | 2018-02-17 14:00 | NUR ---
Pt sleeping on gurney, no signs of distress, will continue to monitor.
--- NOTE | 2018-02-17 14:15 | NUR ---
PT IS IN THE BED RESTING. THERE'S NO SIGNS OF DISTRESS. WILL CONTINUE TO MONITOR.
--- NOTE | 2018-02-17 14:29 | NUR ---
PT IS IN THE BED RESTING. THERE'S NO SIGNS OF DISTRESS. WILL CONTINUE TO MONITOR.
--- NOTE | 2018-02-17 14:45 | NUR ---
PT IS IN THE BED RESTING. THERE'S NO SIGNS OF DISTRESS. WILL CONTINUE TO MONITOR.
--- NOTE | 2018-02-17 14:55 | NUR ---
Social Service Note: INTERVENTION NURSE contacted the [facility] ([phone]); INTERVENTION NURSE spoke to Allyson who states that they do not have an update at this time.
--- NOTE | 2018-02-17 15:00 | NUR ---
PT IS IN THE BED RESTING. THERE'S NO SIGNS OF DISTRESS. WILL CONTINUE TO MONITOR.
--- NOTE | 2018-02-17 15:16 | NUR ---
PT IS IN THE BED RESTING. THERE'S NO SIGNS OF DISTRESS. WILL CONTINUE TO MONITOR.
--- NOTE | 2018-02-17 15:30 | NUR ---
PT IS IN THE BED RESTING. HE ASKED TO GET SOMETHING TO DRINK CAUSE HIS MOUTH IS DRY THERE'S NO SIGNS OF DISTRESS. WILL CONTINUE TO MONITOR.
--- NOTE | 2018-02-17 15:30 | NUR ---
Pt sleeping on gurney, no signs of distress, will continue to monitor.
--- NOTE | 2018-02-17 15:45 | NUR ---
PT IS IN THE BED RESTING. THERE'S NO SIGNS OF DISTRESS. WILL CONTINUE TO MONITOR.
--- NOTE | 2018-02-17 15:45 | NUR ---
PT IS RESTING IN BED. NO SIGNS OF DISTRESS. WILL CONTINUE TO MONITOR.
--- NOTE | 2018-02-17 16:00 | NUR ---
PT IS RESTING. THERE'S NO SIGNS OF DISTRESS. WILL CONTINUE TO MONITOR.
--- NOTE | 2018-02-17 16:15 | NUR ---
PT IS IN THE BED RESTING. THERE'S NO SIGNS OF DISTRESS. WILL CONTINUE TO MONITOR.
--- NOTE | 2018-02-17 16:30 | NUR ---
PT IS IN THE BED RESTING. THERE'S NO SIGNS OF DISTRESS. WILL CONTINUE TO MONITOR.
--- NOTE | 2018-02-17 16:30 | NUR ---
Pt sleeping on gurney, no signs of distress, will continue to monitor.
--- NOTE | 2018-02-17 16:45 | NUR ---
PT IS IN THE BED RESTING. THERE'S NO SIGNS OF DISTRESS. WILL CONTINUE TO MONITOR.
--- NOTE | 2018-02-17 17:00 | NUR ---
PT IS IN THE BED RESTING. THERE'S NO SIGNS OF DISTRESS. WILL CONTINUE TO MONITOR.
--- NOTE | 2018-02-17 17:15 | NUR ---
PT LAYING IN BED COMPLAINING THAT ITS HARD FOR HIM TO SLEEP, ASKING FOR MEDICATION FOR PAIN.WILL CONTINUE TO MONITOR.
[2018-02-17] MEDS ORDERED: LORazepam 2 MG/ML VIAL (FOR ER USE) IM ONE (17:30)
[2018-02-17] MEDS ORDERED: HALOPERIDOL LACTATE 5 MG/ML VIAL IM ONE (17:30)
[2018-02-17] MEDS ORDERED: DIPHENHYDRAMINE INJ 50 MG/ML VIAL IM ONE (17:30)
--- NOTE | 2018-02-17 17:30 | NUR ---
PT IS YELLING "IT HURTS IT HURTS I CANT TAKE THIS NO MORE I JUST WANNA SLEEP" SOLEDAD THE NURSE WAS NOTIFIED ABOUT THE PAIN, I WILL CONTINUE TO MONITOR.
--- NOTE | 2018-02-17 17:35 | NUR ---
Pt appears agitated; pt speaking in loud voice stating "Im in pain!" Dr. Avila made aware of situation.
--- NOTE | 2018-02-17 17:44 | NUR ---
THE NURSE SOLEDAD CAME IN TO GIVE THE PT MEDICATIONS PT IS NOW RESTING. WILL CONTINUE TO MONITOR.
--- NOTE | 2018-02-17 17:45 | NUR ---
Pt medicated as ordered by ER Dr. Avila. Pt tolerated well; will continue to monitor.
--- NOTE | 2018-02-17 17:52 | NUR ---
Spoke with Peg from [facility] who informs [facility] of Dr. Rice. Address: [address] [place] [address] Because pt was recently medicated, Peg states we must wait 4 hours to arrange transportation and to call for report at 2230. Number to Call report: [phone]
--- NOTE | 2018-02-17 17:58 | NUR ---
PT IS IN THE BED RESTING. THERE'S NO SIGNS OF DISTRESS. WILL CONTINUE TO MONITOR.
--- NOTE | 2018-02-17 18:00 | NUR ---
Finished hand-off report from [facility].
--- NOTE | 2018-02-17 18:15 | NUR ---
Pt. resting in bed, will continue to monitor.
--- NOTE | 2018-02-17 18:30 | NUR ---
Pt sleeping on gurney, no signs of distress, will continue to monitor.
--- NOTE | 2018-02-17 18:30 | NUR ---
Pt. resting in bed, will continue to monitor.
--- NOTE | 2018-02-17 18:45 | NUR ---
Pt. resting in bed, no signs of agitation. Will continue to monitor.
--- NOTE | 2018-02-17 19:00 | NUR ---
Patient resting quietly in bed. Sitter remains at bedside on 1:1 observation. No acute distress noted at this time. Patient able to verbalize needs.
--- NOTE | 2018-02-17 19:00 | NUR ---
Pt. resting in bed, no signs of agitation. Will continue to monitor.
--- NOTE | 2018-02-17 19:10 | NUR ---
Security at bedside to wand patient.
--- NOTE | 2018-02-17 19:15 | NUR ---
Pt. supine. Resting in bed, no signs of agitation. Will continue to monitor.
--- NOTE | 2018-02-17 19:25 | NUR ---
191 pt. walked to restroom then walked back to room. No agitation/aggression. Compliant of dizziness. Pt. back in bed and resting. Will continue to monitor.
--- NOTE | 2018-02-17 19:30 | NUR ---
Pt. resting in bed peacefully. Will continue to monitor.
--- NOTE | 2018-02-17 19:40 | NUR ---
Patient given half sandwhich. Sitting up eating independently, ate sandwhich to 100% completion.
--- NOTE | 2018-02-17 19:45 | NUR ---
Pt. is resting comfortably. Will continue to monitor.
--- NOTE | 2018-02-17 20:00 | NUR ---
PT. is resting will continue to monitor.
--- NOTE | 2018-02-17 20:15 | NUR ---
pt. resting in bed will continue to monitor.
--- NOTE | 2018-02-17 20:30 | NUR ---
Pt. supine. Resting, will continue to monitor.
--- NOTE | 2018-02-17 20:45 | NUR ---
Pt. resting in bed, will continue to monitor.
--- NOTE | 2018-02-17 21:00 | NUR ---
pt. resting in bed. Will continue to monitor.
--- NOTE | 2018-02-17 21:15 | NUR ---
PT. resting in bed. Will continue to monitor.
--- NOTE | 2018-02-17 21:30 | NUR ---
pt. resting in bed. Will continue the monitor.
--- NOTE | 2018-02-17 21:30 | NUR ---
Patient resting quietly. Sitter remains at bedside.
--- NOTE | 2018-02-17 21:45 | NUR ---
pt. supine. Resting in bed. will continue to monitor.
--- NOTE | 2018-02-17 22:00 | NUR ---
pt supine. Resting in bed. Will continue to monitor.
--- NOTE | 2018-02-17 22:00 | NUR ---
Patient ambulatory to restoom. Ambulates with steady gait.
--- NOTE | 2018-02-17 22:15 | NUR ---
Pt. resting in bed. Will continue to monitor.
[2018-02-17 22:35] VITALS: BP_SYST 131
--- NOTE | 2018-02-17 22:35 | NUR ---
[facility] be [facility]. Is being transferred due to higher level of care. Receiving facility has accepting physician and available space. ER physician has signed transfer form. Patient or responsible constitution party has agreed to transfer and signed form. Patient belongings inventoried and will be sent with patient. Copy of nursing notes, lab reports, EKG, Physicians Orders and X-rays to be sent with patient. Report called to Alvina at receiving facility. Receiving physician is Krystal. [facility] ambulance service has been called for transfer. ETA to [facility] is 30 minutes..
== END 2018-02-17 22:35 | disposition psychiatric hospital, planned readmission (93) ==
LOC: SED 13:23
DX: R45.851 Suicidal ideations (principal); R05 Cough; R53.1 Weakness; F31.9 Bipolar disorder, unspecified
CPT/HCPCS: 36415; 80053; 80307; 85025; 96372; 99285; G0482; J1200; J1630; J1885; J2060; J7030